=== PATIENT | female | born 1985 ===

== ENCOUNTER 2020-07-01 19:05 | Emergency (ER) | payer SELFPAY ==
[~2020-07-01] VITALS: Ht 172.7 cm; Wt 58.1 kg
[2020-07-01] MEDS ORDERED: CEPH500C2 PO (20:13)
[2020-07-01] MEDS ORDERED: CEphaleXIN 500 MG CAPSULE PO ONE (20:15)
[2020-07-01] MEDS ORDERED: CEphaleXIN 500 MG CAPSULE ONE (20:23)
[2020-07-01 20:31] VITALS: BP 116/74
--- NOTE | 2020-07-01 20:31 | NUR ---
Patient given written and verbal discharge instructions. Patient verbalizes understanding of instructions. Patient is ambulatory with steady gait. Refuses offer of intermediate placement. Patient given list of available shelters in surrounding area. Patient refused to sign homeless waiver form.
== END 2020-07-01 20:36 | disposition home or self-care (01) ==
LOC: ER 19:05
DX: R42 Dizziness and giddiness (principal); F07.81 Postconcussional syndrome; S71.112D Laceration without foreign body, left thigh, subsequent encounter; W26.9XXD Contact with unspecified sharp object(s), subsequent encounter; Z59.0 Homelessness; F17.210 Nicotine dependence, cigarettes, uncomplicated; L65.9 Nonscarring hair loss, unspecified
CPT/HCPCS: A4663